=== PATIENT | female | born 1985 | race Caucasian/White ===

== ENCOUNTER 2017-12-16 20:41 | Emergency (ER) | payer OTHER ==
[2017-12-16] MEDS: IBUPROFEN 800 MG TAB PO (21:59)
== END 2017-12-16 23:26 | disposition home or self-care (01) ==
LOC: FTE 20:41
DX: S93.492A Sprain of other ligament of left ankle, initial encounter (principal); R40.2412 Glasgow coma scale score 13-15, at arrival to emergency department; F17.210 Nicotine dependence, cigarettes, uncomplicated; W10.8XXA Fall (on) (from) other stairs and steps, initial encounter; Y92.9 Unspecified place or not applicable
CPT/HCPCS: 73610; 99283-25

== ENCOUNTER 2017-12-24 22:39 | Emergency (ER) | payer OTHER | END 2017-12-25 01:49 | disposition home or self-care (01) | LOC: FTE 22:39 | DX: S80.02XA Contusion of left knee, initial encounter (principal); F17.210 Nicotine dependence, cigarettes, uncomplicated; W18.39XA Other fall on same level, initial encounter; Y92.9 Unspecified place or not applicable | CPT/HCPCS: 73600; 73600-LT; 73630-LT; 99283-25 ==